=== PATIENT | male | born 1980 | race Caucasian/White ===

== ENCOUNTER 2016-08-26 18:46 | Emergency (ER) | payer OTHER ==
[~2016-08-26] VITALS: Ht 177.8 cm; Wt 107.0 kg
[2016-08-26 19:03] VITALS: Ht 177.8 cm; Wt 107.0 kg
[2016-08-26] MEDS ORDERED: CEPH-443 PO (19:18)
[2016-08-26] MEDS ORDERED: HYDR-3011 PO (19:18)
[2016-08-26] MEDS ORDERED: TR1B60 TOP (19:18)
--- NOTE | 2016-08-26 19:25 | ERD ---
ER Documentation Chief Complaint Date/Time DATE: 08/26/16 TIME: 19:22 Chief Complaint scaterred body rasahes x 4 days HPI 35-year-old male presents here in emergency department for complaints of rash all over the body and itching. Patient now is complaining of pain on those rashes, burning pain, 4/10 scale, is worse upon touching the area. Patient took Benadryl home with only mild relief. Patient denies any lip swelling, tongue swelling or stridor. Patient denies any shortness of breath or wheezing ROS All systems reviewed and are negative except as per history of present illness. Medications Home Meds Active Scripts Triamcinolone Acetonide (Triamcinolone Acetonide) 0.1% - 60 Ml Lotion, 1 APPLIC TOP BID, #1 BOTTLE Prov:KI PARRISH NP 08/26/16 Hydroxyzine Hcl* (Hydroxyzine Hcl*) 25 Mg Tablet, 25 MG PO Q8H Y for ITCHING, # 30 TAB Prov:KI PARRISH NP 08/26/16 Cephalexin* (Keflex*) 500 Mg Capsule, 500 MG PO QID for 10 Days, CAP Prov:KI PARRISH NP 08/26/16 Allergies Allergies: Coded Allergies: No Known Allergy (Unverified , 03/22/12) PMhx/Soc History of Surgery: Yes (appendectomy) Anesthesia Reaction: No Hx Neurological Disorder: No Hx Respiratory Disorders: No Hx Cardiac Disorders: No Hx Psychiatric Problems: No Hx Miscellaneous Medical Probl: No Hx Alcohol Use: No Hx Substance Use: No Hx Tobacco Use: No FmHx Family History: No coronary disease, No diabetes, No other Physical Exam Vitals Vital Signs Date Time Temp Pulse Resp B/P Pulse Ox O2 Delivery O2 Flow Rate FiO2 08/26/16 19:03 97.4 98 20 132/81 100 Physical Exam GENERAL: The patient is well developed and appropriate for usual state of health, in no apparent distress. CHEST: Clear to auscultation bilaterally. There are no rales, wheezes or rhonchi. HEART: Regular rate and rhythm. No murmurs, clicks, rubs or gallops. No S3 or S4. ABDOMEN: Soft, nontender and nondistended. Good bowel sounds. No rebound or guarding. No gross peritonitis. No gross organomegaly or masses. No Villafana sign or McBurney point tenderness. BACK: No midline or flank tenderness. EXTREMITIES: Equal pulses bilaterally. There is no peripheral clubbing, cyanosis or edema. No focal swelling or erythema. Full range of motion. Grossly neurovascularly intact. NEURO: Alert and oriented. Cranial nerves 2-12 intact. Motor strength in all 4 extremities with 5/5 strength. Sensation grossly intact. Normal speech and gait. SKIN: Maculopapular rash noted all over the body. No ecchymosis noted, no fluctuance noted. There is no apparent ecchymosis or petechia. The skin is warm and dry. HEMATOLOGIC AND LYMPHATIC: There is no evidence of excessive bruising or lymphedema. No gross cervical, axillary, or inguinal lymphadenopathy. Procedures/MDM Medical decision making: Patient's symptoms was likely consistent with infected insect bites. No symptoms of any abscesses at this time. No symptoms of any allergic reaction, urticaria, anaphylactic shock. No symptoms of sepsis at this time. Patient appears well and is hemodynamically stable. Prescription was given for Keflex, hydroxyzine, triamcinolone cream, is advised to follow with primary care doctor in 2-3 days reevaluation symptoms. Patient was advised to return to emergency department for any worsening symptoms. Departure Diagnosis: Primary Impression: Infected insect bite Encounter type: initial encounter Qualified Code: W57.XXXA - Infected insect bite, initial encounter Condition: Stable Patient Instructions: Insect Sting/Bite, Infected KI PARRISH NP August 26, 2016 19:25
== END 2016-08-26 19:25 | disposition home or self-care (01) ==
LOC: E/R 18:46
DX: R21 Rash and other nonspecific skin eruption (principal); W57.XXXA Bitten or stung by nonvenomous insect and other nonvenomous arthropods, initial encounter; Y92.9 Unspecified place or not applicable
CPT/HCPCS: 99284

== ENCOUNTER 2017-01-22 09:11 | Emergency (ER) | payer OTHER ==
[~2017-01-22] VITALS: Ht 157.5 cm; Wt 102.5 kg
[~2017-01-22 09:11] MED LIST: CEPH-443 PO; HYDR-3011 PO; TR1B60 TOP
[2017-01-22 09:15] VITALS: Ht 157.5 cm; Wt 102.5 kg
[2017-01-22] MEDS ORDERED: KETOROLAC 30 MG INJ IM STA (10:21)
--- NOTE | 2017-01-22 10:37 | ERD ---
ER Documentation Chief Complaint Chief Complaint Complains of a sorethroat HPI 36 year old male comes in with a sore throat, fever, body aches and 2 day. Reports achy, localized low back pain, worse with movement, moderate and improving with motrin. Denies cough, rhinorrhea. Denies vomiting, diarrhea. No recent travel. ROS All systems reviewed and are negative except as per history of present illness. Medications Home Meds Active Scripts Amoxicillin* (Amoxicillin*) 500 Mg Cap, 500 MG PO TID for 10 Days, CAP Prov:LYNETTE RUIZ PA-C 01/22/17 Ibuprofen* (Motrin*) 600 Mg Tab, 600 MG PO Q6, #30 TAB Prov:LYNETTE RUIZ PA-C 01/22/17 Triamcinolone Acetonide (Triamcinolone Acetonide) 0.1% - 60 Ml Lotion, 1 APPLIC TOP BID, #1 BOTTLE Prov:KI PARRISH NP 08/26/16 Hydroxyzine Hcl* (Hydroxyzine Hcl*) 25 Mg Tablet, 25 MG PO Q8H Y for ITCHING, # 30 TAB Prov:KI PARRISH NP 08/26/16 Cephalexin* (Keflex*) 500 Mg Capsule, 500 MG PO QID for 10 Days, CAP Prov:KI PARRISH NP 08/26/16 Allergies Allergies: Coded Allergies: No Known Allergy (Unverified , 01/22/17) PMhx/Soc History of Surgery: Yes (appendectomy) Anesthesia Reaction: No Hx Neurological Disorder: No Hx Respiratory Disorders: No Hx Cardiac Disorders: No Hx Psychiatric Problems: No Hx Miscellaneous Medical Probl: No Hx Alcohol Use: No Hx Substance Use: No Hx Tobacco Use: No Physical Exam Vitals Vital Signs Date Time Temp Pulse Resp B/P Pulse Ox O2 Delivery O2 Flow Rate FiO2 01/22/17 09:15 98.0 108 20 142/87 97 Physical Exam General: Well-developed, well-nourished. The patient appears in no acute distress. HEENT: Head is normocephalic, atraumatic. No scleral icterus. Pupils are equal , round, and reactive. Oral mucous membranes are moist. Bilateral tonsillar exudate, uvula midline, no masses. Neck: Supple. Nontender. Meningismus. Lungs: Clear to auscultation. Normal air movement. Heart: Regular rate and rhythm. S1 and S2 are normal. No murmurs, gallops, or rubs. Abdomen: Soft, nontender, nondistended. Bowel sounds are normoactive. Extremities: No clubbing or cyanosis. Normal pulses. Moving extremities x 4. No weakness. : Bilateral paraspinous tenderness in the lumbar region, full range of motion, strength lower extremities 5 out of 5 bilaterally, no rashes. Neurologic: Alert and oriented 3. No focal deficits. Skin: Normal turgor. No rash or lesions. Results 24 hrs Current Medications Medications (Trade) Dose Ordered Sig/Ubaldo Route PRN Reason Start Time Stop Time Status Last Admin Dose Admin Ketorolac Tromethamine (Toradol) 30 mg ONCE STAT IM 01/22/17 10:21 01/22/17 10:23 DC 01/22/17 10:35 Procedures/MDM Rapid strep: POS Medical decision makin-year-old positive and will be treated for strep pharyngitis. There is no evidence of an abscess, bacterial tracheitis, retropharyngeal abscess and is stable for outpatient management. Departure Diagnosis: Primary Impression: Strep pharyngitis Condition: Good LYNETTE RUIZ PA-C Jan 22, 2017 10:37
[2017-01-22] MEDS ORDERED: AMOX500C2 PO (11:02)
[2017-01-22] MEDS ORDERED: IBUP-1542 PO (11:02)
== END 2017-01-22 11:10 | disposition home or self-care (01) ==
LOC: FTE 09:11
DX: J02.0 Streptococcal pharyngitis (principal)
CPT/HCPCS: 87880; 96372; J1885; Z7502

== ENCOUNTER 2017-02-23 11:41 | Emergency (ER) | payer OTHER ==
[~2017-02-23] VITALS: Wt 105.0 kg
[~2017-02-23 11:41] MED LIST changes: +AMOX500C2 PO; +IBUP-1542 PO
--- NOTE | 2017-02-23 12:37 | ERD ---
ER Documentation Chief Complaint Chief Complaint r. ankle pain s/p slip and fall HPI 36-year-old male patient with no significant medical history, presents to the emergency department with his c/o of sudden onset of right ankle pain, constant, after a forced eversion of his right foot at work. The event occurred approximately 2 hours ago. The pain is dull, rated 6/10, radiated to right foot. Aggravating factors: Walking and direct pressure. Alleviating factors: Elevation. Denies numbness, tingling, deformity, no fever, chills, N/V/ D. no history of previous episodes. Treatment attempted: None. Previous evaluation: None. History was given by the patient. ROS SYSTEMIC symptoms: no fever, chills, no night sweats, no weight loss EYE symptoms: No blurred vision, no eye discharge OTOLARYNGEAL symptoms: No hearing loss. No ear pain, no sore throat CARDIOVASCULAR symptoms: No chest pain or discomfort, no palpitations. PULMONARY symptoms: No dyspnea, no cough, no wheezing. GASTROINTESTINAL symptoms: No abdominal pain, no nausea, no vomiting, no diarrhea MUSCULOSKELETAL symptoms: Per HPI NEUROLOGY symptoms: No confusion, no syncope, no numbness or tingling. SKIN: No rashes Medications Home Meds Active Scripts Amoxicillin* (Amoxicillin*) 500 Mg Cap, 500 MG PO TID for 10 Days, CAP Prov:LYNETTE RUIZ PA-C 01/22/17 Ibuprofen* (Motrin*) 600 Mg Tab, 600 MG PO Q6, #30 TAB Prov:LYNETTE RUIZ PA-C 01/22/17 Triamcinolone Acetonide (Triamcinolone Acetonide) 0.1% - 60 Ml Lotion, 1 APPLIC TOP BID, #1 BOTTLE Prov:KI PARRISH NP 08/26/16 Hydroxyzine Hcl* (Hydroxyzine Hcl*) 25 Mg Tablet, 25 MG PO Q8H Y for ITCHING, # 30 TAB Prov:KI PARRISH NP 08/26/16 Cephalexin* (Keflex*) 500 Mg Capsule, 500 MG PO QID for 10 Days, CAP Prov:KI PARRISH NP 08/26/16 Allergies Allergies: Coded Allergies: No Known Allergy (Unverified , 01/22/17) PMhx/Soc Denies history of hypertension, diabetes History of Surgery: Yes (appendectomy) Anesthesia Reaction: No Hx Neurological Disorder: No Hx Respiratory Disorders: No Hx Cardiac Disorders: No Hx Psychiatric Problems: No Hx Miscellaneous Medical Probl: No Hx Alcohol Use: No Hx Substance Use: No Hx Tobacco Use: No FmHx Denies family history Physical Exam Vitals Vital Signs Date Time Temp Pulse Resp B/P Pulse Ox O2 Delivery O2 Flow Rate FiO2 02/23/17 11:42 99.4 83 20 125/74 97 Physical Exam Patient is in no acute distress, vital signs stable. Alert and fully oriented. EYES: PERRLA, EOMI, Sclera and conjunctiva appear normal. EARS: Canals clear, tympanic membranes WNL THROAT: Normal oropharynx. NECK: Supple, No lymphadenopathy. Full ROM without pain or tenderness. HEART: RRR, no rubs, murmurs, clicks or gallops. LUNGS: Clear to auscultation. ABDOMEN: Soft, non-tender without masses or hepatosplenomegaly. EXTREMITIES: Right ankle: Inspection: Mild edema anterior ankle, lateral malleolus, ecchymosis. No deformity. Tenderness to palpation over external malleolus. Decreased range of motion for flexion and extension. Full range of motion of toes, neurovascular exam intact Results 24 hrs . [place] [id number] Radiology Main Line: [phone] DIAGNOSTIC IMAGING REPORT Patient: FRED ARMAS : 1980 Age: 36 Sex: M MR #: [id number] DOS: 02/23/17 1202 Ordering MD: RIGO MOURA MD Location: FTE Room/Bed: PROCEDURE: XR Ankle. CLINICAL INDICATION: Pain. Trauma. TECHNIQUE: AP oblique and lateral views of the right ankle were performed. COMPARISON: None. FINDINGS: The osseous structures and articular spaces of the right ankle appear intact. No acute fracture or dislocation is seen. No radiopaque foreign body is identified. There is mild lateral soft tissue swelling. IMPRESSION: 1. Bilateral soft tissue swelling. 2. No acute fracture or dislocation.. RPTAT: HJPL .Ildefonso Brar MD, MD Date Time Electronically viewed and signed by .Ildefonso Brar MD, MD on 02/23/2017 12:55 .L/ CC: RIGO MOURA MD Procedures/[facility] 36y/o male patient with no medical history, presents to the ED c/o right ankle pain for 2 hours after a forced inversion at work. Vital signs stable, Physical exam unremarkable, right ankle with neurovascular exam intact, lateral malleolus tenderness, edema and ecchymosis. Differential diagnosis include but not limited to: Contusion, sprain/strain, fracture. Pertinent Data: Radiology: IMPRESSION: 1. Bilateral soft tissue swelling. 2. No acute fracture or dislocation.. Physical examination and clinical presentation consistent most likely with Right ankle sprain. During the ED course the patient received crutches and posterior splint Splint evaluation: Type: Posterior lower extremity Location: Right lower extremity Position: good alignment in anatomical position Neurovascular intact Results and clinical impression discussed with patient who agrees with management. The patient is stable to be treated outpatient and will be discharged home with a Rx for ibuprofen as needed for pain Side effects of prescribed NSAID medication (GI distress, edema, bleeding, HTN) were reviewed. The patient was instructed to follow up with the primary care provider in the next 48h. If symptoms persist, worsen or new symptoms develop, then patient should return to the ED immediately. Instructions explained and given to patient in [Slovak] with acknowledgment and demonstrated understanding. Disclaimer: Inadvertent spelling and grammatical errors are likely due to EHR/ dictation software use and do not reflect on the overall quality of patient care. Also, please note that the electronic time recorded on this note does not necessarily reflect the actual time of the patient encounter. Departure Diagnosis: Primary Impression: Ankle sprain Additional Impression: Work related injury Condition: Stable Additional Instructions: Muchas linda por [facility] para navarro servicio. Esperamos que en navarro visita a la sreedhar de emergencia navarro problema medico haya sido solucionado y que se sienta mucho mejor. Para estar seguros que navarro mejoria sigue en proceso, le pedimos el favor de hacer dianne stacey de seguimiento medico con navarro doctor primario en los proximos 2-4 vee. Lleve con usted estos documentos y las medicinas recetadas. Si rosalinda sintomas empeoran y no puede elizabeth a navarro doctor, por favor regrese a sreedhar de emergencia. En delmis que usted no tenga un mdico de atencin primaria: Llame al mdico o clnica comunitaria de referencia que aparece abajo ronni las horas de consultorio para hacer dianne stacey para que le vean. CLINICAS: [place] [id number] [phone] [facility] [phone] [facility] [phone] [place] [phone] [place] [id number] [phone] [facility]. [phone] RIGO MORAN MD Feb 23, 2017 12:33
--- NOTE | 2017-02-23 12:55 | RADRPT ---
PROCEDURE: XR Ankle. CLINICAL INDICATION: Pain. Trauma. TECHNIQUE: AP oblique and lateral views of the right ankle were performed. COMPARISON: None. FINDINGS: The osseous structures and articular spaces of the right ankle appear intact. No acute fracture or dislocation is seen. No radiopaque foreign body is identified. There is mild lateral soft tissue s welling. IMPRESSION: 1. Bilateral soft tissue swelling. 2. No acute fracture or dislocation.. RPTAT: HJPL .Ildefonso Brar MD, MD Date Time Electronically viewed and signed by .Ildefonso Brar MD, MD on 02/23/2017 12:55 .L/
[2017-02-23] MEDS ORDERED: IBUP-1542 PO (13:14)
== END 2017-02-23 13:24 | disposition home or self-care (01) ==
LOC: FTE 11:41
DX: S93.401A Sprain of unspecified ligament of right ankle, initial encounter (principal); W01.0XXA Fall on same level from slipping, tripping and stumbling without subsequent striking against object, initial encounter; Y92.89 Other specified places as the place of occurrence of the external cause
CPT/HCPCS: 73610; Z7502